=== PATIENT | female | born 1995 | race Caucasian/White ===

== ENCOUNTER 2022-10-17 19:46 | Outpatient (REF) | payer BC, SELFPAY | END 2022-10-17 19:47 | disposition home or self-care (01) | LOC: LBN 19:46 | PROVIDERS: Visit Provider Nurse Practitioner Family | DX: N76.0 Acute vaginitis (principal) | CPT/HCPCS: 87480; 87510; 87660 ==

== ENCOUNTER 2022-11-16 04:03 | Outpatient (CLI) | payer BC, SELFPAY ==
[2022-11-16 18:05] LABS: TSH (W/Ref FT4) 3.16 uIU/mL (0.36-3.74)
== END 2022-11-16 04:04 | disposition home or self-care (01) ==
LOC: LBO 04:03
PROVIDERS: Visit Provider Advanced Practice Midwife
DX: F41.8 Other specified anxiety disorders (principal); F32.89 Other specified depressive episodes
CPT/HCPCS: 36415; 84443

== ENCOUNTER 2023-04-18 16:11 | Outpatient (REF) | payer BC, SELFPAY ==
--- NOTE | 2023-04-18 16:05 | PAPFT_PTH ---
PATIENT: Myra Genao LOC: [facility] U#:[id number] AGE/SX: 27/F ROOM: RE04/18/[address]: Shahana Bourgeois MD : 1995 BED: DIS: 04/18/2023 SPEC #: [id number] RECD: 04/18/23 17:44 STATUS: PAUL REPatt #: [id number] KHUSHBU: 04/18/23 16:[address]: Shahana Bourgeois DEPT: [facility] Cytology RECD BY: Phuong Lan ENTERED: 04/18/23 17:44 SP TYPE: PAPFT TOM DR: Ayanna Rivera APRN Tissues: 1 - CX/ENDOCX FOR PAP SMEARS Procedures: PAP THIN PREP/[facility] Screening Comments: [id number] (CHLAMYDIA/GC)
[2023-04-19 16:29] LABS: Chlamydia Result Negative (Negative); GC Result Negative (Negative)
== END 2023-04-18 16:12 | disposition home or self-care (01) ==
LOC: LBN 16:11
PROVIDERS: PCP Nurse Practitioner; Visit Provider Obstetrics & Gynecology
DX: Z12.4 Encounter for screening for malignant neoplasm of cervix (principal)
CPT/HCPCS: 87491; 87591; 88142